=== PATIENT | female | born 1995 | race Caucasian/White ===

== ENCOUNTER 2019-04-27 08:57 | Emergency (ER) | payer SELFPAY ==
--- NOTE | 2019-04-27 09:16 | ED ---
Complex/Multi-Sys Presentation - HPI Summary HPI Summary: Patient is a 23-year-old female who presents emergency department for epigastric abdominal pain that radiates into her chest 3 days. Patient notes pain is worse with eating and with lying flat. Patient also notes she has had some mild lightheadedness and lower abdominal pain and cramping she contributes to her menstrual cycle. Pt. notes one episode of vomiting last night. Patient has no significant past medical history. She denies drug or alcohol use. Patient notes she's been taking naproxen for her menstrual cramps. Symptoms are moderate in severity. No current modifying factors. Patient is a local [employer] student. - History Of Current Complaint Chief Complaint: EDAbdPain Time Seen by Provider: 04/27/19 09:14 Hx Obtained From: Patient - Allergies/Home Medications Allergies/Adverse Reactions: Allergies Allergy/AdvReac Type Severity Reaction Status Date / Time No Known Allergies Allergy Verified 04/27/19 09:08 Home Medications: Home Medications Naproxen Sodium [Naproxen 220 mg] 2 tab PO Q8H PRN 04/27/19 [History Confirmed 04/27/19] PMH/Surg Hx/FS Hx/Imm Hx Previously Healthy: Yes Infectious Disease History: No Infectious Disease History: Denies: Traveled Outside the [place] in Last 30 Days - Family History Known Family History: Positive: Non-Contributory - Social History Occupation: Student Lives: Dormitory/Roommates Alcohol Use: None Hx Substance Use: No Review of Systems Constitutional: Negative Negative: Fever Eyes: Negative ENT: Negative Positive: Chest Pain Respiratory: Negative Negative: Cough Positive: Abdominal Pain, Vomiting, Nausea Genitourinary: Negative Negative: dysuria Skin: Negative Neurological: Negative All Other Systems Reviewed And Are Negative: Yes Physical Exam Triage Information Reviewed: Yes Vital Signs On Initial Exam: Initial Vitals Temp Pulse Resp BP Pulse Ox 99.1 F 86 16 127/67 100 04/27/19 09:05 04/27/19 09:05 04/27/19 09:05 04/27/19 09:05 04/27/19 09:05 Vital Signs Reviewed: Yes Appearance: Positive: Well-Appearing - Pt. sitting up in bed in NAD. Laughing and talking to friend when I walked into room. Skin: Positive: Warm, Dry Head/Face: Positive: Normal Head/Face Inspection Eyes: Positive: Normal, EOMI ENT: Positive: Pharynx normal, TMs normal Neck: Positive: Supple Respiratory/Lung Sounds: Positive: Clear to Auscultation, Breath Sounds Present. Negative: Rales, Rhonchi, Wheezes Cardiovascular: Positive: Normal, RRR Abdomen Description: Positive: Other: - Abd is soft with mild tenderness to epigastrium. Negative charles sign. Neurological: Positive: Normal, CN Intact II-III Psychiatric: Positive: Affect/Mood Appropriate Procedures - Sedation Patient Received Moderate/Deep Sedation with Procedure: No Diagnostics - Vital Signs Vital Signs Temp Pulse Resp BP Pulse Ox 04/27/19 09:05 99.1 F 86 16 127/67 100 - Laboratory Result Diagrams: 04/27/19 09:10 04/27/19 09:10 Lab Statement: Any lab studies that have been ordered have been reviewed, and results considered in the medical decision making process. Complex Multi-Symp Course/Dx Course Of Treatment: Pt. presenting with epigastric pain. Benign exam. Suspect reflux. ECG was ordered by triage at 0900 shows a sinus rhythm of 95bpm, nomral axis, no STEMI. Basic labs are unremarkable GI cocktail provided mild improvement. Results discussed. Will start on pepcid BID. Discussed foods and medications to avoid. Will f.u with [facility]. To return to er if sxs change or worsen. Pt. understands and agrees with plan. - Diagnoses Provider Diagnoses: Acid reflux Discharge ED - Sign-Out/Discharge Documenting (check all that apply): Patient Departure - Discharge Plan Condition: Improved Disposition: HOME Prescriptions: Famotidine TAB* [Pepcid 20 MG TAB*] 20 mg PO BID #30 tab Patient Education Materials: Diet for Stomach Ulcers and Gastritis (ED), Gastroesophageal Reflux Disease (ED) Referrals: [facility] @ [Outside] Additional Instructions: Schedule a follow up appointment with [facility] clinic within one week Pepcid as directed Can take over the counter Tums or Maalox as well Avoid foods high in spice, acid, grease, alcohol Return to ER if symptoms change or worsen - Billing Disposition and Condition Condition: IMPROVED Disposition: Home
[2019-04-27 09:18] LABS: ABS Eosinophils 0.1 10^3/ul (0-0.6); ABS Lymphocytes 1.3 10^3/ul (1.0-4.8); ABS Monocytes 0.5 10^3/ul (0-0.8); ABS Neutrophils 2.8 10^3/ul (1.5-7.7); Eosinophil % 2.9 %; Hematocrit 42 % (35-47); Hemoglobin 13.8 g/dL (12.0-16.0); Lymphocyte % 26.9 %; Mean Corpuscular HGB Conc 33 g/dL (31-36); Mean Corpuscular Hemoglobin 26 pg (27-31); Mean Corpuscular Volume 80 fL (80-97); Mean Platelet Volume 7.7 fL (7.4-10.4); Nucleated Red Blood Cells % 0.3; Platelet Count 246 10^3/uL (150-450); Red Blood Count 5.23 10^6 /uL (3.70-4.87); Red Cell Distribution Width 14 % (10-15); White Blood Count 4.7 10^3/uL (3.5-10.8)
[2019-04-27 09:25] LABS: INR 1.07 (0.82-1.09)
[2019-04-27] MEDS ORDERED: Lidocaine 2% VISCOUS* 15 ML UDC PO ONE (09:26)
[2019-04-27] MEDS ORDERED: Al Hydrox/Mg Hydrox/Simet LIQ* 30 ML UDC PO ONE (09:26)
[2019-04-27 09:35] LABS: ALT 33 U/L (7-52); AST 26 U/L (13-39); Albumin 4.7 g/dL (3.2-5.2); Albumin/Globulin Ratio 1.7 (1-3); Alkaline Phosphatase 100 U/L (34-104); Anion Gap 9 mmol/L (2-11); BUN/Creatinine Ratio 14.1 (8-20); Blood Urea Nitrogen 11 mg/dL (6-24); CO2 Carbon Dioxide 25 mmol/L (22-32); Calcium 9.6 mg/dL (8.6-10.3); Chloride 105 mmol/L (101-111); EGFR African American 112.8 (>60); EGFR Non-African American 93.2 (>60); Globulin 2.8 g/dL (2-4); Glucose 86 mg/dL (70-100); Potassium 3.6 mmol/L (3.5-5.0); Sodium 139 mmol/L (135-145); Total Protein 7.5 g/dL (6.4-8.9)
[2019-04-27 09:38] LABS: Troponin I 0.01 ng/mL (<0.03)
[2019-04-27 09:55] LABS: HCG Pregnancy < 0.60 mIU/mL
[2019-04-27 11:19] VITALS: BP 101/69
== END 2019-04-27 10:56 | disposition home or self-care (01) ==
LOC: ED 08:57
DX: K21.9 Gastro-esophageal reflux disease without esophagitis (principal)
CPT/HCPCS: 36415; 80053; 83690; 84484; 84702; 85025; 85610; 93005; 99282; A9270-GY